=== PATIENT | female | born 1980 | race Two or more races ===

== ENCOUNTER → 2025-03-15 | Outpatient (CLI) | payer MEDICAID, SELFPAY ==
--- NOTE | 2025-03-15 11:45 | XR_ITS ---
Examination: Screening digital mammography, bilateral Computer aided detection 3-D breast Tomosynthesis, bilateral Date and time of exam: March 15, 2025, 1129 hours No priors Indication: Screening Technique: Nonmagnified MLO, CC views of the breasts to been obtained, reconstructed from 3-D Tomosynthesis images. R2 computer aided detection program utilized for evaluation of suspicious masses and/or abnormal calcifications. 3-D Tomosynthesis images obtained. Findings: Scattered areas of fibroglandular density. 18 mm focal asymmetry upper inner right breast anterior depth 10 mm focal asymmetry inner upper left breast anterior depth Impression: BI-RADS Category 0: Incomplete: Need additional imaging evaluation Recommend follow-up spot tomographic views 18 mm focal asymmetry upper inner right breast and 10 mm focal asymmetry inner upper left breast as well as bilateral breast sonography to complete
== END | disposition home or self-care (01) ==
LOC: CDIM 11:22
PROVIDERS: Referring Provider Nurse Practitioner; Visit Provider Nurse Practitioner
DX: Z12.31 Encounter for screening mammogram for malignant neoplasm of breast (principal); R92.8 Other abnormal and inconclusive findings on diagnostic imaging of breast; N64.89 Other specified disorders of breast
CPT/HCPCS: 77063; 77067